=== PATIENT | female | born 1995 | race Two or more races ===

== ENCOUNTER 2023-09-17 15:10 | Emergency (ER) | payer OTHER ==
[~2023-09-17] VITALS: Ht 162.6 cm; Wt 61.2 kg
[2023-09-17] MEDS ORDERED: PRENA1 TRUE CO1 EACH PO (16:33)
[2023-09-17 19:32] LABS: PH,URINE 5.5 (5.0-8.0); URINE APPEARANCE Clear; URINE BACTERIA 2808.5 uL (0.0-1933); URINE BILIRRUBIN Negative (NEGATIVE); URINE BLOOD Negative; URINE COLOR Yellow; URINE EPITHELIAL CELLS 51.3 uL (0.0-38.8); URINE GLUCOSE Negative (NEGATIVE); URINE LEUKOCYTE Negative; URINE NITRATE Negative; URINE PROTEIN Negative (NEGATIVE); URINE RBC 4.1 uL (0.0-20.8); URINE WBC 13.1 uL (0.0-23.2)
[2023-09-17 19:33] LABS: HEMATOCRIT 38.8 % (36.0-45.00); MEAN CELL VOLUME 85.5 fL (80.00-100.00); MEAN CORPUSCULAR HEMOGLOBIN 28.7 pg (27.00-32.0); MEAN CORPUSCULAR HGB CONC 33.6 g/dl (32.0-36.0); PLATELET COUNT 157 K/uL (150-450); RED BLOOD COUNT 4.54 M/uL (4.00-6.00); RED CELL DISTRIBUTION WIDTH 12.9 % (11.5-14.5)
[2023-09-17 20:22] LABS: CALCIUM 8.8 mg/dL (8.5-10.1); CREATININE SERUM 0.64 mg/dL (0.55-1.02); GFR 109.71; POTASSIUM 3.59 mEq/L (3.5-5.1)
== END 2023-09-17 21:50 | disposition home or self-care (01) ==
LOC: ER 15:11
PROVIDERS: General Practice
DX: O23.31 Infections of other parts of urinary tract in pregnancy, first trimester (principal); N39.0 Urinary tract infection, site not specified; Z3A.11 11 weeks gestation of pregnancy; Z20.822 Contact with and (suspected) exposure to COVID-19

== ENCOUNTER 2023-09-27 10:08 | Outpatient (CLI) | payer OTHER ==
[~2023-09-27 10:08] MED LIST: PRENA1 TRUE CO1 EACH PO
== END 2023-09-27 10:11 | disposition home or self-care (01) ==
LOC: PRENATAL 10:08
PROVIDERS: ATTEND Obstetrics & Gynecology Maternal & Fetal Medicine
DX: O36.80X0 Pregnancy with inconclusive fetal viability, not applicable or unspecified (principal); Z36.82 Encounter for antenatal screening for nuchal translucency; Z3A.12 12 weeks gestation of pregnancy

== ENCOUNTER 2023-11-20 08:15 | Outpatient (CLI) | payer OTHER | END 2023-11-20 08:18 | disposition home or self-care (01) | LOC: PRENATAL 08:15 | PROVIDERS: ATTEND Obstetrics & Gynecology Maternal & Fetal Medicine | DX: O35.3XX0 Maternal care for (suspected) damage to fetus from viral disease in mother, not applicable or unspecified (principal); O44.00 Complete placenta previa NOS or without hemorrhage, unspecified trimester; O98.919 Unspecified maternal infectious and parasitic disease complicating pregnancy, unspecified trimester; Z3A.20 20 weeks gestation of pregnancy ==

== ENCOUNTER 2024-03-25 14:45 | Inpatient (IN) | payer OTHER ==
[~2024-03-25] VITALS: Ht 152.4 cm; Wt 74.4 kg
[2024-04-09] MEDS ORDERED: MISOPROSTOL 25 MCG/4 ML GEL.W.APPL ONE (07:49)
[2024-04-09 08:03] LABS: URINE APPEARANCE Clear; URINE BILIRRUBIN Negative (NEGATIVE); URINE BLOOD Negative; URINE COLOR Yellow; URINE KETONE Trace (NEGATIVE); URINE LEUKOCYTE Negative; URINE NITRATE Negative; URINE PROTEIN Negative (NEGATIVE)
[2024-04-09 08:07] LABS: URINE BACTERIA 603.4 uL (0.0-1933); URINE RBC 4.1 uL (0.0-20.8); URINE WBC 17.9 uL (0.0-23.2)
[2024-04-09 08:10] LABS: HEMOGLOBIN 12.7 g/dL (12.0-15.00); MEAN CELL VOLUME 88.5 fL (80.00-100.00); MEAN CORPUSCULAR HEMOGLOBIN 31.2 pg (27.00-32.0); MEAN CORPUSCULAR HGB CONC 35.3 g/dl (32.0-36.0); PLATELET COUNT 154 K/uL (150-450); RED BLOOD COUNT 4.06 M/uL (4.00-6.00); RED CELL DISTRIBUTION WIDTH 13.1 % (11.5-14.5)
[2024-04-09 08:27] LABS: URINE GLUCOSE 500 MG/DL (NEGATIVE)
[2024-04-09] MEDS ORDERED: MISOPROSTOL 25 MCG/4 ML GEL.W.APPL VAG ONE (08:30)
[2024-04-09 08:36] LABS: INR < 0.93; PROTHROMBIN TIME 9.8 SECONDS (9.0-11.5)
[2024-04-09] MEDS ORDERED: OXYTOCIN 500 ML IV SCH (12:15)
[2024-04-09] MEDS ORDERED: MORPHINE SULFATE 4 MG/ML CARTRIDGE IV NR (12:15)
[2024-04-09] MEDS ORDERED: OXYTOCIN 10 UNITS/ML VIAL ONE (16:09)
[2024-04-09] MEDS ORDERED: ERYTHROMYCIN BASE 1 GM TUBE OP ONE (16:09)
[2024-04-09] MEDS ORDERED: CEFAZOLIN SODIUM 1,000 MG VIAL ONE (16:17)
[2024-04-09] MEDS ORDERED: CEFAZOLIN SODIUM 1,000 MG VIAL IV SCH (16:30)
[2024-04-09] MEDS ORDERED: MEPERIDINE HCL/PF 50 MG/ML VIAL IM PRN (18:00)
[2024-04-09] MEDS ORDERED: PROMETHAZINE HCL 50 MG/ML AMPUL IM PRN (18:00)
[2024-04-09] MEDS ORDERED: PROMETHAZINE HCL 50 MG/ML AMPUL IM ONE (21:01)
[2024-04-09 22:56] LABS: ABG PH 7.174 (7.35-7.45)
[2024-04-09 22:57] LABS: ABG PO2 14.2 mmHg (80-100); ABG pCO2 70.9 mmHg (35-45); BASE EXCESS -4.6 mmol/l; BICARBONATE 25.5 mmol/l (23-25); Tco2 27.7 mmol/l; o2 21 %
[2024-04-09 22:58] LABS: SaO2 11.1 %
[2024-04-10 06:34] LABS: HEMATOCRIT 35.5 % (36.0-45.00); HEMOGLOBIN 12.7 g/dL (12.0-15.00); MEAN CELL VOLUME 88.5 fL (80.00-100.00); MEAN CORPUSCULAR HEMOGLOBIN 31.6 pg (27.00-32.0); MEAN CORPUSCULAR HGB CONC 35.7 g/dl (32.0-36.0); PLATELET COUNT 149 K/uL (150-450); RED BLOOD COUNT 4.01 M/uL (4.00-6.00); RED CELL DISTRIBUTION WIDTH 12.9 % (11.5-14.5)
[2024-04-10] MEDS ORDERED: DOCUSATE SODIUM 100MG CAP PO SCH (09:00)
[2024-04-10] MEDS ORDERED: PNV,CALCIUM 72/IRON/FOLIC ACID 1 TAB TABLET PO SCH (09:00)
[2024-04-10] MEDS ORDERED: OxyCODONE HCL/APAP UD (PERCOCET) PO PRN (09:00)
[2024-04-10] MEDS ORDERED: SIMETHICONE 125 MG CAPSULE PO SCH (09:00)
== END 2024-04-12 12:59 | disposition home or self-care (01) | DRG 788 ==
LOC: OB/GYN 04-06 14:45 → LDR 04-09 06:20 → O/R 04-09 17:05 → OB/GYN 04-09 20:21
PROVIDERS: ADMIT Obstetrics & Gynecology; ATTEND Obstetrics & Gynecology
PROC: 4A1HXCZ Monitoring of Products of Conception, Cardiac Rate, External Approach (ICD-10-PCS; 2024-04-09)
PROC: 10D00Z1 Extraction of Products of Conception, Low, Open Approach (ICD-10-PCS; principal; 2024-04-09 16:45)
DX: O33.8 Maternal care for disproportion of other origin (principal); Z3A.40 40 weeks gestation of pregnancy; Z37.0 Single live birth; Z20.822 Contact with and (suspected) exposure to COVID-19